=== PATIENT | female | born 1995 | race Caucasian/White ===

== ENCOUNTER → 2018-02-04 | Outpatient (CLI) | payer OTHER, MEDICAID ==
[2018-02-04 17:40] LABS: BASO % 0.3 % (0.0-1.0); EOS # 0.1 10^3/uL (0.0-0.50); EOS % 0.8 % (0.0-3.0); HEMOGLOBIN 12.9 g/dl (12.0-15.5); IMMATURE GRANULOCYTE % 0.3 % (0-3.0); LYMPH # 1.4 10^3/uL (1.5-6.5); LYMPH % 19.2 % (24.0-44.0); MEAN CORPUSCULAR HEMOGLOBIN 30.1 pg (27.0-33.0); MEAN CORPUSCULAR HGB CONC 34.9 g/dl (32.0-36.5); MEAN CORPUSCULAR VOLUME 86.4 fl (80.0-96.0); MONO # 0.7 10^3/uL (0.0-0.8); MONO % 9.3 % (0.0-5.0); NEUTROPHILS # 5.2 10^3/uL (1.8-7.7); NEUTROPHILS % 70.1 % (36.0-66.0); PLATELET COUNT, AUTOMATED 351 10^3/uL (150-450); RED BLOOD COUNT 4.28 10^6/uL (4.00-5.40); RED CELL DISTRIBUTION WIDTH 12.3 % (11.5-14.5); WHITE BLOOD COUNT 7.3 10^3/uL (4.0-10.0)
[2018-02-04 22:31] LABS: CHLAMYDIA DNA AMPLIFICATION NEGATIVE (NEGATIVE); GC DNA AMPLIFICATION NEGATIVE (NEGATIVE)
[2018-02-06 09:13] LABS: RUBELLA IgG QUALITATIVE IMMUNE (IMMUNE)
[2018-02-06 09:30] LABS: HBsAg Prenatal NEGATIVE (NEGATIVE)
[2018-02-06 09:43] LABS: HEPATITIS C VIRUS ABY INDEX < 0.0 INDEX (<0.8)
[2018-02-06 09:43] LABS: HIV 1&2 SCREEN CENTAUR NEGATIVE (NEGATIVE)
== END ==
LOC: M WUC 13:35
DX: Z34.81 Encounter for supervision of other normal pregnancy, first trimester (principal); Z3A.10 10 weeks gestation of pregnancy
CPT/HCPCS: 86762

== ENCOUNTER → 2018-03-29 | Outpatient (CLI) | payer OTHER | LOC: M RAD 14:21 | DX: Z36.89 Encounter for other specified antenatal screening (principal); Z3A.22 22 weeks gestation of pregnancy | CPT/HCPCS: 76811 ==

== ENCOUNTER → 2018-04-29 | Outpatient (CLI) | payer OTHER | LOC: M RAD 14:41 | DX: O32.2XX0 Maternal care for transverse and oblique lie, not applicable or unspecified (principal); Z36.89 Encounter for other specified antenatal screening; Z3A.27 27 weeks gestation of pregnancy | CPT/HCPCS: 76816 ==

== ENCOUNTER → 2018-05-15 | Outpatient (CLI) | payer OTHER ==
[2018-05-15 17:36] LABS: BASO % 0.1 % (0.0-1.0); EOS % 0.4 % (0.0-3.0); HEMATOCRIT 34.7 % (36.0-47.0); HEMOGLOBIN 11.8 g/dl (12.0-15.5); IMMATURE GRANULOCYTE % 0.6 % (0-3.0); LYMPH # 1.3 10^3/uL (1.5-6.5); LYMPH % 15.1 % (24.0-44.0); MEAN CORPUSCULAR HEMOGLOBIN 31.1 pg (27.0-33.0); MEAN CORPUSCULAR VOLUME 91.3 fl (80.0-96.0); MONO # 0.7 10^3/uL (0.0-0.8); NEUTROPHILS # 6.3 10^3/uL (1.8-7.7); NEUTROPHILS % 75.8 % (36.0-66.0); PLATELET COUNT, AUTOMATED 285 10^3/uL (150-450); RED CELL DISTRIBUTION WIDTH 12.5 % (11.5-14.5); WHITE BLOOD COUNT 8.3 10^3/uL (4.0-10.0)
[2018-05-15 18:25] LABS: GLUCOSE CHALLENGE TEST 1 HOUR 93 MG/DL (LESS THAN 140)
== END ==
LOC: M SMT 13:02
DX: Z36.89 Encounter for other specified antenatal screening (principal); Z3A.00 Weeks of gestation of pregnancy not specified
CPT/HCPCS: 82950

== ENCOUNTER → 2018-07-03 | Outpatient (REF) | payer OTHER | LOC: M LAB REF 13:10 | DX: Z34.83 Encounter for supervision of other normal pregnancy, third trimester (principal) ==

== ENCOUNTER → 2018-07-17 | Outpatient (CLI) | payer OTHER ==
[~2018-07-17] MED LIST: IBUP-1114 PO; OXYC1TAB23 PO; PRENTAB9 PO
[2018-07-17 13:07] LABS: HEMATOCRIT 36.1 % (36.0-47.0); HEMOGLOBIN 12.4 g/dl (12.0-15.5); MEAN CORPUSCULAR HEMOGLOBIN 30.8 pg (27.0-33.0); MEAN CORPUSCULAR HGB CONC 34.3 g/dl (32.0-36.5); MEAN CORPUSCULAR VOLUME 89.6 fl (80.0-96.0); PLATELET COUNT, AUTOMATED 227 10^3/uL (150-450); RED BLOOD COUNT 4.03 10^6/uL (4.00-5.40); WHITE BLOOD COUNT 8.5 10^3/uL (4.0-10.0)
[2018-07-17 13:36] LABS: ALT/SGPT 15 U/L (12-78); BILIRUBIN,TOTAL 0.2 MG/DL (0.2-1.0); CREATININE FOR GFR 0.52 MG/DL (0.55-1.30); GLOMERULAR FILTRATION RATE > 60.0 (>60); LDH LACTATE DEHYDROGENASE 196 U/L (84-246); URIC ACID 3.8 MG/DL (2.6-6.0)
[2018-07-17 14:35] LABS: CREATININE,RANDOM URINE 46.2 MG/DL; TOTAL PROTEIN,RANDOM URINE 12.3 MG/DL (0.0-12.0)
== END ==
LOC: M SMT 11:12
PROVIDERS: ATTEND Advanced Practice Midwife
DX: Z34.83 Encounter for supervision of other normal pregnancy, third trimester (principal); Z36.89 Encounter for other specified antenatal screening

== ENCOUNTER 2018-07-19 07:54 | Inpatient (IN) | payer OTHER ==
[~2018-07-19] VITALS: Ht 162.6 cm; Wt 99.3 kg
[2018-07-19] VITALS (16 sets, daily range): BP systolic 106–152; BP diastolic 50–74
[2018-07-19] MEDS ORDERED: LACTATED RINGER'S 1000 ML IV STA (07:57)
[2018-07-19] MEDS ORDERED: PRENTAB9 PO (08:10)
--- NOTE | 2018-07-19 08:48 | HPEPDOC ---
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 BREAST: . ABDOMEN: Gravid and non-tender to touch. FETUS: Is vertex (VTX) by sterile vaginal examination (SVE), fetus is vertex (VTX) by Steve. HEART RATE: Regular rate and rhythm. LUNGS: Clear to auscultation (CTA). EXTREMITIES: No edema. No clonus. Deep tendon reflexes (DTRs) + 2. Laboratory Data [facility] Laboratory Tests 2 07/19/18 08:11: Serology Scanned Report Hepatitis B Testing Pertinent Laboratoy Data Blood Type: B+ RBC Antibody Screen: Negative HIV: Negative Hepatitis B: Negative Hepatitis C: Negative Rapid Plasma Reagin: Nonreactive Rubella: Immune Chlamydia/Gonorrhea: Negative Group B Streptococcus: Negative Quad Screen Test: Declined Glucose Tolerance Test: 93 Anatomy Ultrasound Ultrasound Date: Mar 29, 2018 Placenta Location: Posterior Normal Anatomy: Yes Placenta Previa: No Estimated Weight (grams): 532 Other Ultrasounds 01/09/18 dating 10w6d, determined CARLEEN Steroid Therapy Steroid Therapy: No Vaginal Examination Dilation: None Effacement: other (thick) Station: -3 Cervical Consistency: Medium Cervical Position: Posterior Assessment Heart Rate (FHR): 155 Variability: Moderate Accelerations: Positive Decelerations: None Tocometer Contractions: No Assessment/Plan Assessment Sera is a 22-year-old (G)1 para (P)0-0-0-0 at 38 weeks by 10-week ultrasound. Presents to Labor and Delivery (L&D) for induction of labor due to gestational hypertension. Denies LOF or bleeding. Fetus active. Plan Admit and orient per consultation Dr Collins Human Resources District Manager and consent. Diet: Regular. Group B Streptococcus (GBS) negative. Labs and intravenous (IV) per unit protocol. Counseled on misoprostol, Pitocin and induction of labor (IOL). Lactated Ringers (LR): Bolus 500 mL, then saline lock. Pt plans to labor ad godfrey Anticipate normal spontaneous delivery (). C-S as appropriate. Nila Hawkins CNM Jul 19, 2018 08:18
[2018-07-19 08:50] LABS: HEMATOCRIT 36.2 % (36.0-47.0); HEMOGLOBIN 12.7 g/dl (12.0-15.5); MEAN CORPUSCULAR HEMOGLOBIN 31.1 pg (27.0-33.0); MEAN CORPUSCULAR HGB CONC 35.1 g/dl (32.0-36.5); MEAN CORPUSCULAR VOLUME 88.5 fl (80.0-96.0); PLATELET COUNT, AUTOMATED 240 10^3/uL (150-450); RED BLOOD COUNT 4.09 10^6/uL (4.00-5.40); WHITE BLOOD COUNT 7.6 10^3/uL (4.0-10.0)
[2018-07-19] MEDS: miSOPROStol 50 MCG 1/2 TAB (S0191) PO SCH ×4 (08:55→21:03)
[2018-07-19 09:25] LABS: CREATININE,RANDOM URINE 28.4 MG/DL; TOTAL PROTEIN,RANDOM URINE 10.1 MG/DL (0.0-12.0)
[2018-07-19 10:45] LABS: ALT/SGPT 18 U/L (12-78); BILIRUBIN,TOTAL 0.2 MG/DL (0.2-1.0); GLOMERULAR FILTRATION RATE > 60.0 (>60); LDH LACTATE DEHYDROGENASE 269 U/L (84-246); URIC ACID 4.1 MG/DL (2.6-6.0)
[2018-07-19] MEDS: hydrOXYzine 50 MG TAB PO SCH (21:00)
[2018-07-20] VITALS (13 sets, daily range): BP systolic 104–186; BP diastolic 52–84
[2018-07-20] MEDS: miSOPROStol 50 MCG 1/2 TAB (S0191) PO SCH ×2 (01:04→05:04)
--- NOTE | 2018-07-20 11:44 | IPNPDOC ---
Text Note Date of Service The patient was seen on 07/20/18. NOTE S: Is not feeling contractions. O: SVE: closed/long/high (posterior) FHR: Cat I, baseline 150, mod variability TOCO: irregular contractions A: 22 yo being induced for gHTN P: Cook's catheter with 30 cc placed Has received 6 doses of Misoprostol, changed to pitocin VS,Fishbone, I+O VS, Fishbone, I+O Vital Signs Date Time Temp Pulse Resp B/P (MAP) Pulse Ox O2 Delivery O2 Flow Rate FiO2 07/20/18 04:41 98.6 84 16 116/63 (80) I&O- Last 24 Hours up to 6 AM 07/20/18 06:00 Intake Total 360 ml Output Total 1300 ml Balance -940 ml GME ATTESTATION GME ATTESTATION My faculty preceptor for this patient encounter was physically present during the encounter and was fully available. All aspects of the patient interview, examination, medical decision making process, and medical care plan development were reviewed and approved by the faculty preceptor. The faculty preceptor is aware and concurs with the plan as stated in the body of this note and will attest to such by his/her cosignature. JORGE SAWYER DO Jul 20, 2018 11:44
[2018-07-20] MEDS ORDERED: OXYTOCIN DRIP 30 UNITS in APPROPRIATE DILUENT 1 EA IV SCH (11:45)
[2018-07-20] MEDS: LR 1,000 ML IV SCH ×2 (12:10→19:44)
[2018-07-20] MEDS: hydrOXYzine 50 MG TAB PO SCH (21:00)
--- NOTE | 2018-07-20 22:48 | NUR ---
Progress note S: Feels mild contractions O: WT=668/80 NAD Abd: NT, gravid FHT: Cat I [place]: q 2minutes, mild cx: 3 cm/50%/-2 vtx A/P 22 yo at 38 1/7 weeks with gestational HTN, day 2 induction Cook's Cath out Pitocin on 14 mu/min Plan AROM when able (Pt could not tolerate attempt at AROM at this time) Lj Collins MD
[2018-07-21] VITALS (20 sets, daily range): BP systolic 96–143; BP diastolic 51–80
[2018-07-21] MEDS: LR 1,000 ML IV SCH ×3 (03:44→18:54)
--- NOTE | 2018-07-21 07:45 | NUR ---
Progress note S: Feels mild cramps O: KI=773/55 (supine) NAD Abd: NT, gravid SVE: 3 cm/50%/-2 AROM [place]: Q2-3 minutes A/P 22 yo G1 at 38 2/7 weeks gestation, day 3 induction for gestational hypertension Pitocin at 20 mu/min AROM performed as noted above If patient does not progress into active labor today, will need Lj Collins MD
[2018-07-21] MEDS: PRENATAL VITAMINS CHEWABLE TABLET PO SCH (09:00)
--- NOTE | 2018-07-21 12:26 | IPNPDOC ---
Text Note Date of Service The patient was seen on 07/21/18. NOTE Ruptured @ 0721 UC are irregular despite pitocin @ 20 mu FH 150, moderate variability, sporadic early decels SVE unchanged, 2-50/-2, posterior Discussed lack of progress despite maximum pitocin and ROM over 5 hours Discussed with pt recommendation for primary at this time Dr Collins informed VS,Fishbone, I+O VS, Fishbone, I+O Vital Signs Date Time Temp Pulse Resp B/P (MAP) Pulse Ox O2 Delivery O2 Flow Rate FiO2 07/21/18 06:34 72 112/55 (74) 07/21/18 04:38 98.4 07/20/18 04:41 16 I&O- Last 24 Hours up to 6 AM 07/21/18 06:00 Intake Total 1580 ml Output Total 800 ml Balance 780 ml Nila Hawkins CNM Jul 21, 2018 12:25
[2018-07-21] MEDS ORDERED: AZITHROMYCIN INJ 500 MG, VIAL MATE ADAPTER 1 EACH in D5W 250 ML IV ONE (12:30)
[2018-07-21] MEDS ORDERED: LACTATED RINGER'S 1000 ML IV STA (12:30)
[2018-07-21] MEDS ORDERED: AZITHROMYCIN INJ 500MG VIAL (J0456) As Ordered ONE (12:32)
[2018-07-21 12:45] LABS: HEMATOCRIT 37.1 % (36.0-47.0); HEMOGLOBIN 12.7 g/dl (12.0-15.5); MEAN CORPUSCULAR HEMOGLOBIN 30.6 pg (27.0-33.0); MEAN CORPUSCULAR HGB CONC 34.2 g/dl (32.0-36.5); MEAN CORPUSCULAR VOLUME 89.4 fl (80.0-96.0); PLATELET COUNT, AUTOMATED 216 10^3/uL (150-450); RED BLOOD COUNT 4.15 10^6/uL (4.00-5.40); WHITE BLOOD COUNT 16.2 10^3/uL (4.0-10.0)
[2018-07-21] MEDS ORDERED: BICITRA 30ML SOLN UDC PO ONE (12:45)
[2018-07-21] MEDS ORDERED: OXYTOCIN INJ 10 UNITS/ML VIAL (J2590) As Ordered ONE ×2 (13:09→14:29)
[2018-07-21] MEDS ORDERED: MORPHINE PRES-FREE INJ 10 MG/10 ML VIAL (J2274) As Ordered ONE (13:10)
[2018-07-21] MEDS ORDERED: KETOROLAC 60 MG/2 ML VIAL (J1885) As Ordered ONE (13:12)
[2018-07-21] MEDS ORDERED: dexameTHASONE 4 MG/ML 1ML VIAL (J1100) As Ordered ONE (13:13)
[2018-07-21] MEDS ORDERED: ONDANSETRON 4MG/2ML VIAL (J2405) As Ordered ONE (13:13)
[2018-07-21] MEDS ORDERED: OXYTOCIN DRIP 30 UNITS in APPROPRIATE DILUENT 1 EA IV SCH (14:35)
[2018-07-21] MEDS ORDERED: MEASLES,MUMPS,RUBELLA VACCINE INJ (MMR-II) (90707) SC SCH (14:45)
[2018-07-21] MEDS ORDERED: RHOGAM 300 MCG (1500 IU) INJ (J2790) IM SCH (14:45)
[2018-07-21] MEDS ORDERED: PERCOCET 5MG/325MG TAB PO PRN ×3 (14:45→15:15)
[2018-07-21] MEDS ORDERED: ONDANSETRON 4MG/2ML VIAL (J2405) IV PRN ×2 (14:45→15:15)
[2018-07-21] MEDS ORDERED: miSOPROStol 200 MCG TAB (S0191) PR ONE (14:45)
[2018-07-21] MEDS ORDERED: OXYTOCIN 30 UNITS IN 0.9% NaCl 500ML IV BAG (J2590) As Ordered ONE (14:51)
[2018-07-21] MEDS ORDERED: LR 1,000 ML IV SCH (15:15)
[2018-07-21] MEDS ORDERED: fentaNYL 100 MCG/2 ML INJECTION (J3010) IV PRN (15:15)
[2018-07-21] MEDS: KETOROLAC 30 MG/ML VIAL (J1885) IV SCH (18:39)
[2018-07-22] MEDS: LR 1,000 ML IV SCH (01:45)
[2018-07-22] MEDS: KETOROLAC 30 MG/ML VIAL (J1885) IV SCH ×2 (01:59→06:29)
[2018-07-22 02:00] VITALS: BP 94/54
[2018-07-22 06:00] VITALS: BP 127/79
--- NOTE | 2018-07-22 06:06 | IPNPDOC ---
Text Note Date of Service The patient was seen on 07/22/18. NOTE /Post-operative Day 1 Status post primary Low Transverse Section Subjective Is having some burning at her incision site. Lochia decreasing. Has not voided yet. Passing flatus. Tolerating a regular diet. Ambulating without any assistance. Denies any subjective fever/chills/nausea/headache/visual changes/shortness of breath/chest pain. Breast feeding. Objective Vitals: Normotensive, normal heart rate, afebrile, adequate urine output. Heart: regular, rate, and rhythm. no murmurs/gallops/rubs Lungs: clear to auscultation bilaterally, no wheezes/crackles/rales/ronchi Abd: obese, soft, nontender, nondistended, uterine fundus is at the umbilicus and firm. Ext: no significant edema, nontender, negative Klaudia's bilaterally. Assessment/Plan: /Post-operative day 1. Recovering well. Hemodynamically stable, afebrile, pain control adequate. -Routine care -Potential discharge to home Sunday -Routine infectious, fever, pain, and bleeding precautions reviewed VS,Alejandrobone, I+O VS, Carae, I+O Laboratory Tests 07/21/18 12:40 Red Blood Count 4.15, Mean Corpuscular Volume 89.4, Mean Corpuscular Hemoglobin 30.6, Mean Corpuscular Hemoglobin Concent 34.2, Red Cell Distribution Width 12.6 Vital Signs Date Time Temp Pulse Resp B/P (MAP) Pulse Ox O2 Delivery O2 Flow Rate FiO2 07/22/18 05:27 20 07/22/18 02:00 97.9 60 94/54 (67) 98 Room Air I&O- Last 24 Hours up to 6 AM 07/22/18 06:00 Intake Total 1935 ml Output Total 2225 ml Balance -290 ml GME ATTESTATION GME ATTESTATION My faculty preceptor for this patient encounter was physically present during the encounter and was fully available. All aspects of the patient interview, examination, medical decision making process, and medical care plan development were reviewed and approved by the faculty preceptor. The faculty preceptor is aware and concurs with the plan as stated in the body of this note and will attest to such by his/her cosignature. JORGE SAWYER DO Jul 22, 2018 06:06
[2018-07-22 06:25] LABS: HEMATOCRIT 32.4 % (36.0-47.0); HEMOGLOBIN 11.1 g/dl (12.0-15.5); MEAN CORPUSCULAR HEMOGLOBIN 30.9 pg (27.0-33.0); MEAN CORPUSCULAR HGB CONC 34.3 g/dl (32.0-36.5); MEAN CORPUSCULAR VOLUME 90.3 fl (80.0-96.0); PLATELET COUNT, AUTOMATED 213 10^3/uL (150-450); RED BLOOD COUNT 3.59 10^6/uL (4.00-5.40); WHITE BLOOD COUNT 12.3 10^3/uL (4.0-10.0)
[2018-07-22] MEDS: PRENATAL VITAMINS CHEWABLE TABLET PO SCH (07:21)
[2018-07-22] MEDS ORDERED: OXYC1TAB23 PO (10:43)
[2018-07-22 14:11] VITALS: BP 140/78
[2018-07-22] MEDS: IBUPROFEN 800 MG TAB PO SCH ×2 (14:46→23:46)
[2018-07-22 18:30] VITALS: BP 123/62
[2018-07-22 22:25] VITALS: BP 114/56
[2018-07-23 02:45] VITALS: BP 114/55
[2018-07-23 06:14] VITALS: BP 115/65
[2018-07-23] MEDS: IBUPROFEN 800 MG TAB PO SCH (06:37)
[2018-07-23] MEDS ORDERED: IBUP-1114 PO (08:44)
[2018-07-23] MEDS: PRENATAL VITAMINS CHEWABLE TABLET PO SCH (10:03)
--- NOTE | 2018-07-23 10:53 | DSES ---
DATE OF ADMISSION: 07/19/2018 DATE OF DISCHARGE: 07/23/2018 ADMITTING DIAGNOSIS: Induction of labor at 39 weeks secondary to gestational hypertension. DISCHARGE DIAGNOSIS: Primary low transverse section, single live born delivered via section. INDICATION: Arrest of dilation. DISCHARGE SUMMARY: This is a 22-year-old, (G)1 now para (P) 1 who was admitted on 07/19/2018 for induction of labor at 39 weeks secondary to gestational hypertension. She underwent induction with misoprostol, Pitocin, and artificial rupture of membranes. After about 5 hours, she was still only 2-3 cm dilated, and there was no descent of the presenting vertex. The patient was counseled regarding her assessment and was offered a primary section for arrest of dilation given that there was no change in dilation or station after maximum dose of Pitocin and rupture of membranes for 5 hours. The patient then elected to proceed with a primary low transverse section. The delivery was uncomplicated. The patient's intraoperative and postoperative courses were uncomplicated. By postoperative day #2, the patient was meeting all discharge criteria. Her pain was well controlled on oral pain medications. She was ambulating without assistance, voiding spontaneously, tolerating a regular diet, and her lochia/bleeding was minimal. PHYSICAL EXAMINATION: Vitals: Temperature 97.3, pulse 70, respiratory rate 16, blood pressure 114/55, and 98% on room air. Heart: Regular rate and rhythm. No murmurs, gallops or rubs. Lungs: Clear to auscultation bilaterally. No wheezes, crackles, rales, or rhonchi. Abdomen: Soft, nondistended, appropriately tender around the incision site. Normoactive bowel sounds. Fundus firm at the umbilicus. Incision: Dry, intact, clean, without surrounding erythema or induration. Minimal blood is noted on the left corner. Extremities: Nonedematous, nontender. Negative Homans sign bilaterally. ASSESSMENT/PLAN: This is a 22-year-old, G1, now P1, status post primary low transverse delivery secondary to arrest of dilation who is now on postoperative day #2. She is hemodynamically stable, afebrile with good pain control. She is meeting all discharge criteria. 1. Routine infectious, pain, fever and bleeding precautions were reviewed. 2. Surgical wound/incision care/precautions reviewed. DISCHARGE MEDICATIONS: - oxycodone/acetaminophen 5/325 one tablet by mouth three times a day as needed for a maximum daily dose of 3 tablets for 6 days, 20 tablets dispensed - ibuprofen 800 mg by mouth every 6 hours as needed for pain OUTPATIENT FOLLOWUP: In 1-2 weeks for routine incision check, postoperative check. My faculty preceptor for this patient encounter was physically present during the encounter and was fully available. All aspects of the patient interview, examination, medical decision making process, and medical care plan development were reviewed and approved by the faculty preceptor. The faculty preceptor is aware and concurs with the plan as stated in the body of this note and will attest to such by his/her co-signature. SUMMER
[2018-07-23 10:59] VITALS: BP 137/77
--- NOTE | 2018-07-24 11:30 | RO ---
DATE OF PROCEDURE: 07/21/2018 PREPROCEDURE DIAGNOSES: 38 2/7 weeks gestation, gestational hypertension, arrest of dilation. POSTPROCEDURE DIAGNOSES: 38 2/7 weeks gestation, gestational hypertension, arrest of dilation. PROCEDURE: Primary low transverse section. SURGEON: Dr. Lj Collins. MATTRESS WEAVER: Dr. Stefan Costa ANESTHESIA: Spinal ESTIMATED BLOOD LOSS: 500 mL. URINE OUTPUT: 150 mL. FINDINGS: Viable male infant, weight unknown at the time of dictation. Vertex position, occiput posterior on asynclitic. Normal uterus, fallopian tubes and ovaries. DESCRIPTION OF PROCEDURE: Patient taken to the operating room where spinal anesthesia was induced. She was prepped and draped in a sterile fashion in the supine position. A Bennett catheter was placed. A Pfannenstiel skin incision was made with the scalpel and carried through to the fascia. The fascia was nicked and extended. The fascia was dissected off the rectus muscle. The rectus muscle divided. The peritoneal cavity was entered. A bladder flap was created. A curvilinear incision was made in the lower uterine segment until clear fluid is noted. This was extended manually. The was delivered in the vertex position without difficulty. The cord was doubly clamped and cut. The was handed off to the awaiting nurses. The placenta was expressed. The uterus was exteriorized and cleared of clots and debris. The uterine incision was closed with 0 Vicryl in a running fashion. A second imbricating layer of 0 Vicryl was placed. The uterus was placed back in the abdominal cavity. The peritoneum was closed with #2-0 Vicryl in a running fashion. The fascia was closed with 0 Vicryl. The deep layer was irrigated and closed with #2-0 chromic. Skin was closed with #4-0 Monocryl subcuticular sutures. Sponge, lap and needle counts were correct. Stefan Costa DO assisted in all aspects of the procedure from beginning to end. He assisted in creating all layers of the abdomen as well as hysterotomy. He then assisted with delivery of the baby and closure of all subsequent layers.
== END 2018-07-23 13:30 | disposition home or self-care (01) | DRG 540 ==
LOC: M LDI 07:54 → M OBS 07-21 16:30
PROVIDERS: ADMIT Advanced Practice Midwife; ATTEND Specialist
PROC: 3E0P7GC Introduction of Other Therapeutic Substance into Female Reproductive, Via Natural or Artificial Opening (ICD-10-PCS; 2018-07-19)
PROC: 10D00Z1 Extraction of Products of Conception, Low, Open Approach (ICD-10-PCS; principal; 2018-07-21 13:28)
DX: O13.4 Gestational [pregnancy-induced] hypertension without significant proteinuria, complicating childbirth (principal); Z3A.38 38 weeks gestation of pregnancy; O62.0 Primary inadequate contractions; O64.0XX0 Obstructed labor due to incomplete rotation of fetal head, not applicable or unspecified; Z37.0 Single live birth